=== PATIENT | female | born 1965 | race Hispanic/Latino ===

== ENCOUNTER 2017-03-31 11:14 | Emergency (ER) | payer MEDICARE, MEDICAID ==
[2017-03-31 11:47] VITALS: BP 113/83
[2017-03-31 11:49] LABS: Urine Drugs of Abuse Note Disclamer
[2017-03-31 12:04] LABS: Bilirubin,Urine Negative (Negative); Blood,Urine Small (Negative); Ketones,Urine Negative (Negative); Leukocyte Esterase,Urine Small (Negative); Nitrite,Urine Negative (Negative); Protein,Urine <15 mg/dL mg/dL (Negative); Urobilinogen,Urine < 2.0 mg/dL (<2.0)
[2017-03-31 12:24] LABS: Hematocrit 38.3 % (30.3-42.9); Hemoglobin 12.3 gm/dl (10.1-14.3); Mean Corpuscular HGB Conc 32 % (30-34); Mean Corpuscular Hemoglobin 29 pg (28-32); Mean Corpuscular Volume 89 fl (79-97); Platelet Count 376 K/mm3 (140-440); Red Cell Distribution Width 13.9 % (13.2-15.2); White Blood Count 10.4 K/mm3 (4.5-11.0)
[2017-03-31 12:40] LABS: Calcium 8.8 mg/dL (8.4-10.2); Chloride 104.5 mmol/L (98-107); Potassium 3.7 mmol/L (3.6-5.0)
--- NOTE | 2017-03-31 15:09 | Cat Scan Report ---
CT HEAD WITHOUT CONTRAST: HISTORY: Headache, altered mental status. TECHNIQUE: Sequential 2.5mm CT images. COMPARISON: none. FINDINGS: Cerebral Parenchyma: Within normal limits. Cerebellum: Within normal limits. Brainstem: Within normal limits. Ventricles: Normal. Sella: Normal. Extra-axial spaces: Normal. Basal Cisterns: Normal. Intracranial Hemorrhage: None. Midline Shift: None. Calvarium: Normal. Sinuses: Normal. Mastoid Air Cells: Normal. Visualized Orbits: Normal. IMPRESSION: Cranial CT scan within normal limits.
--- NOTE | 2017-03-31 16:00 | Emergency Department Report ---
ED General Adult HPI - General Chief complaint: Weakness Stated complaint: NECK PAIN Time Seen by Provider: 03/31/17 12:54 Source: patient, EMS Mode of arrival: Ambulatory Limitations: No Limitations - History of Present Illness Initial comments: Patient apparently is a resident of [facility] for out patient treatment. They have sent her here for "medical clearance". The patient is schizophrenic and bipolar. She has no specific complaint. [facility] has not referred her for any specific evaluation. She received an laboratory data which indicated that she had mild lithium toxicity. She was also found to be a bit confused. Therefore she had a CT of her head which was normal. On speaking to the patient she is a bit confused about her whereabouts. She thinks she is at a psychiatric hospital. I wouldn't be surprised if this is her baseline. She does not complain of pain. She does not complain of anything at all. -: unknown Severity scale (0 -10): 0 Associated Symptoms: denies other symptoms, confusion (found to be a bit confused but does not complain of anything) - Related Data Previous Rx's Medication Instructions Recorded Last Taken Type [place] Carbonate [Eskalith] 150 mg PO BID #60 capsule 03/31/17 Unknown Rx Allergies Allergy/AdvReac Type Severity Reaction Status Date / Time Penicillins Allergy Unknown Verified 03/31/17 11:42 ED Review of Systems ROS: Stated complaint: NECK PAIN Other details as noted in HPI Comment: All other systems reviewed and negative ED Past Medical Hx - Past Medical History Additional medical history: Schizophrenia and bipolar disorder - Social History Substance Use Type: None - Medications Home Medications: Home Medications Medication Instructions Recorded Confirmed Last Taken Type [place] Carbonate [Eskalith] 150 mg PO BID #60 capsule 03/31/17 Unknown Rx ED Physical Exam - General Limitations: No Limitations General appearance: alert, in no apparent distress - Head Head exam: Present: atraumatic, normocephalic - Eye Eye exam: Present: normal appearance. Absent: scleral icterus - ENT ENT exam: Present: mucous membranes moist - Neck Neck exam: Present: normal inspection. Absent: tenderness, meningismus - Respiratory Respiratory exam: Present: normal lung sounds bilaterally. Absent: respiratory distress - Cardiovascular Cardiovascular Exam: Present: regular rate, normal rhythm. Absent: systolic murmur, diastolic murmur, rubs, gallop - GI/Abdominal GI/Abdominal exam: Present: soft, normal bowel sounds. Absent: distended, tenderness, guarding, rebound, rigid - Extremities Exam Extremities exam: Present: normal inspection - Back Exam Back exam: Present: normal inspection - Neurological Exam Neurological exam: Present: alert, altered (a bit confused with poor orientation to place), CN II-XII intact, other. Absent: motor sensory deficit - Psychiatric Psychiatric exam: Present: normal mood, flat affect - Skin Skin exam: Present: warm, dry, intact, normal color. Absent: rash ED Course Vital Signs 03/31/17 03/31/17 03/31/17 11:16 11:46 11:47 Temperature 97.9 F Pulse Rate 76 74 Respiratory 16 15 15 Rate Blood Pressure 101/82 Blood Pressure 113/83 [Left] O2 Sat by Pulse 98 99 99 Oximetry - Reevaluation(s) Reevaluation #1: I spoke to the [place] [facility]. They confirm that the patient should just stop her lithium for 2 days and then restart on a lower dose. There was no indications for hospitalization. We reviewed her EKG vital signs and the balance of her laboratory testing. She will be returned to [facility] with this recommendation. 03/31/17 16:16 ED Medical Decision Making - Lab Data Result diagrams: 03/31/17 11:59 03/31/17 11:59 Laboratory Results - last 24 hr 03/31/17 03/31/17 03/31/17 11:39 11:39 11:59 WBC 10.4 RBC 4.30 Hgb 12.3 Hct 38.3 MCV 89 MCH 29 MCHC 32 RDW 13.9 Plt Count 376 Sodium Potassium Chloride Carbon Dioxide Anion Gap BUN Creatinine Estimated GFR BUN/Creatinine Ratio Glucose Calcium TSH Free T4 Urine Color Yellow Urine Turbidity Clear Urine pH 7.0 Ur Specific [place] 1.005 Urine Protein <15 mg/dl Urine Glucose (UA) Negative Urine Ketones Negative Urine Blood Small A Urine Nitrite Negative Urine Bilirubin Negative Urine Urobilinogen < 2.0 Ur Leukocyte Esterase Small Urine WBC (Auto) 3.0 Urine RBC (Auto) 0.0 U Epithel Cells (Auto) 10.0 Urine Opiates Screen Presumptive negative Urine Methadone Screen Presumptive negative Ur Barbiturates Screen Presumptive negative Ur Phencyclidine Scrn Presumptive negative Ur Amphetamines Screen Presumptive negative U Benzodiazepines Scrn Presumptive negative [place] Urine Cocaine Screen Presumptive negative U Marijuana (THC) Screen Presumptive negative Drugs of Abuse Note Disclamer 03/31/17 03/31/17 03/31/17 11:59 11:59 11:59 WBC RBC Hgb Hct MCV MCH MCHC RDW Plt Count Sodium 142 Potassium 3.7 Chloride 104.5 Carbon Dioxide 22 Anion Gap 19 BUN 10 Creatinine 1.0 Estimated GFR 58 BUN/Creatinine Ratio 10 Glucose 86 Calcium 8.8 TSH 1.300 Free T4 1.69 H Urine Color Urine Turbidity Urine pH Ur Specific [place] Urine Protein Urine Glucose (UA) Urine Ketones Urine Blood Urine Nitrite Urine Bilirubin Urine Urobilinogen Ur Leukocyte Esterase Urine WBC (Auto) Urine RBC (Auto) U Epithel Cells (Auto) Urine Opiates Screen Urine Methadone Screen Ur Barbiturates Screen Ur Phencyclidine Scrn Ur Amphetamines Screen U Benzodiazepines Scrn [place] 1.4 H Urine Cocaine Screen U Marijuana (THC) Screen Drugs of Abuse Note Critical care attestation.: If time is entered above; I have spent that time in minutes in the direct care of this critically ill patient, excluding procedure time. ED Disposition Clinical Impression: [place] toxicity Qualifiers: Encounter type: initial encounter Injury intent: accidental or unintentional Qualified Code(s): T56.891A - Toxic effect of other metals, accidental ( unintentional), initial encounter Bipolar disorder Qualifiers: Active/Remission status: remission status unspecified Qualified Code(s): F31.9 - Bipolar disorder, unspecified Schizophrenia Qualifiers: Schizophrenia type: unspecified Qualified Code(s): F20.9 - Schizophrenia, unspecified Disposition: DC-01 TO HOME OR SELFCARE Is pt being admited?: No Does the pt Need Aspirin: No Condition: Stable Instructions: [place] (By mouth) Additional Instructions: The patient should stop her lithium for the next 2 days. After that, restart lithium at 200 mg twice a day. A repeat lithium level should be obtained next week. Prescriptions: [place] Carbonate [Eskalith] 150 mg PO BID #60 capsule Referrals: PRIMARY CARE, [Primary Care Provider] - 3-5 Days Time of Disposition: 16:19
== END 2017-04-01 01:37 | disposition home or self-care (01) ==
LOC: ED 11:14
DX: M54.2 Cervicalgia (principal); T56.891A Toxic effect of other metals, accidental (unintentional), initial encounter; F31.9 Bipolar disorder, unspecified; F20.9 Schizophrenia, unspecified; Z88.0 Allergy status to penicillin; Y92.89 Other specified places as the place of occurrence of the external cause
CPT/HCPCS: 36415; 70450; 80048; 80178; 80307; 81001; 84439; 84443; 85027; 93005; 93010; 99284

== ENCOUNTER 2017-04-02 13:08 | Emergency (ER) | payer MEDICARE, MEDICAID ==
--- NOTE | 2017-04-02 14:08 | Emergency Department Report ---
ED General Adult HPI - General Chief complaint: Weakness Stated complaint: GENERAL WEAKNESS Time Seen by Provider: 04/02/17 13:57 Source: patient, EMS (ems notes not available at time of chart dictation), RN notes reviewed, old records reviewed Mode of arrival: Stretcher Limitations: No Limitations - History of Present Illness Initial comments: This is a 51-year-old female who is previously unknown to this provider. Patient has a past medical history of schizophrenia, bipolar. Presents to the ER with complaint of weakness and dizziness. Her symptoms have been present for 1 month. They are intermittent. It worsened when she walks and decreased with rest. Patient describes her dizziness as a sensation of room spinning. There is no tinnitus there is no change in auditory acuity, there is no extremity weakness focally or numbness focally. No facial droop. Patient to me reports falling around month ago, complaining of occipital head pain and neck pain. Patient denies bladder or bowel retention or incontinence and saddle anesthesia. -: Gradual, week(s) Location: head, neck Severity scale (0 -10): 0 Quality: aching Consistency: intermittent Improves with: rest Worsens with: movement Associated Symptoms: malaise, weakness. denies: confusion, chest pain, cough, fever/chills - Related Data Previous Rx's Medication Instructions Recorded Last Taken Type [place] Carbonate [Eskalith] 150 mg PO BID #60 capsule 03/31/17 Unknown Rx Meclizine [Antivert] 25 mg PO TID PRN #15 tablet 04/02/17 Unknown Rx Allergies Allergy/AdvReac Type Severity Reaction Status Date / Time Penicillins Allergy Unknown Verified 03/31/17 11:42 ED Review of Systems ROS: Stated complaint: GENERAL WEAKNESS Other details as noted in HPI ED Past Medical Hx - Past Medical History Previous Medical History?: Yes Hx Asthma: Yes Additional medical history: Schizophrenia and bipolar disorder - Surgical History Past Surgical History?: No - Social History Substance Use Type: None - Medications Home Medications: Home Medications Medication Instructions Recorded Confirmed Last Taken Type [place] Carbonate [Eskalith] 150 mg PO BID #60 capsule 03/31/17 Unknown Rx Meclizine [Antivert] 25 mg PO TID PRN #15 tablet 04/02/17 Unknown Rx ED Physical Exam - General Limitations: No Limitations General appearance: alert, in no apparent distress - Head Head exam: Present: atraumatic, normocephalic - Eye Eye exam: Present: normal appearance, PERRL, EOMI, other (visual acuity intact to finger counting, color perception, reading at a close distance). Absent: nystagmus - ENT ENT exam: Present: normal exam, normal orophraynx, mucous membranes moist, TM's normal bilaterally, normal external ear exam - Neck Neck exam: Present: normal inspection, full ROM. Absent: tenderness, meningismus - Respiratory Respiratory exam: Present: normal lung sounds bilaterally. Absent: respiratory distress - Cardiovascular Cardiovascular Exam: Present: regular rate, normal rhythm, normal heart sounds. Absent: systolic murmur, diastolic murmur, rubs, gallop - GI/Abdominal GI/Abdominal exam: Present: soft, normal bowel sounds. Absent: distended, tenderness, guarding, rebound, rigid, pulsatile mass - Extremities Exam Extremities exam: Present: normal inspection, full ROM, normal capillary refill , other (compartments are soft, 2+ pulses noted in the bilateral upper and lower extremities). Absent: pedal edema, joint swelling, calf tenderness - Back Exam Back exam: Present: normal inspection, full ROM. Absent: tenderness, CVA tenderness (R), paraspinal tenderness, vertebral tenderness - Neurological Exam Neurological exam: Present: alert, oriented X3, CN II-XII intact, normal gait ( patient walks with a broad-based gait, but she walks with a steady gait. Patient has sandals on, and is unable to tolerate Romberg exam, or tendon gait) , other (Extraocular movements intact. Tongue midline. No facial droop. Facial sensation intact to light touch in the V1, V2, V3 distribution bilaterally. 5 and 5 strength in 4 extremities.. Sensation is intact to light touch in 4 extremities.). Absent: motor sensory deficit - Psychiatric Psychiatric exam: Present: anxious, flat affect. Absent: homicidal ideation, suicidal ideation - Skin Skin exam: Present: warm, dry, intact, normal color. Absent: rash ED Course Vital Signs 04/02/17 04/02/17 13:26 14:10 Temperature 98.5 F Pulse Rate 84 79 Respiratory 18 14 Rate Blood Pressure 110/72 Blood Pressure 101/67 [Left] Blood Pressure 110/72 [Right] O2 Sat by Pulse 98 Oximetry - Reevaluation(s) Reevaluation #1: 04/02/17 14:18 Differential diagnosis, including when not limited to: Peripheral vestibulopathy , stroke, demyelinating disease, vitamin B12 deficiency, folate deficiency, electrolyte derangement, peripheral neuropathy 04/02/17 14:Assessment and plan: 51-year-old female with complaint of headache, neck pain, mechanical fall 1 month ago, also with a complaint of dizziness. Patient is alert to name, location, year. She walks with a steady gait although it is broad-based. She is not homicidal or suicidal. She was seen a few days ago for nonspecific evaluation, at that point in time it was documented that the patient had no symptoms or complaints, was found to have a slightly supratherapeutic lithium level, and was discharged with instructions to follow-up for this. Given the patient's symptoms have been going on for 1 month, and given that she walks with a steady gait, given that her neurologic examination is nonfocal, demented that there is no nystagmus, I think it is very likely that the patient is at risk for cerebrovascular accident. I also find that the patient had a cerebrovascular accident. Had a negative noncontrast CT scan of the brain a few days ago, and essentially normal laboratory studies with the exception of TSH and free T4. We will repeat laboratory studies, EKGs obtained, patient will be given meclizine. She will need to follow up with outpatient neurology. 20 Reevaluation #2: 04/02/17 16:[address] scan of the brain and cervical spine is negative. Urinalysis was done a few days ago and was negative. Syphilis screen is not back yet, but this can be followed up as an outpatient. Patient resting comfortably with no hemodynamic abnormalities, given that her symptoms have been present for 1 month , I think it is very unlikely that there is any emergent condition requiring hospitalization at this time. Troponin is negative, I find the patient to be low risk by TORRIE, low risk by well's, low risk by heart score Patient should follow up with outpatient neurology. ED Medical Decision Making - Lab Data Result diagrams: 04/02/17 14:23 04/02/17 14:23 Vital Signs 04/02/17 13:26 Pulse Rate 84 Respiratory 18 Rate Blood Pressure 110/72 Blood Pressure 110/72 [Right] O2 Sat by Pulse 98 Oximetry Vital Signs 04/02/17 13:26 Pulse Rate 84 Respiratory 18 Rate Blood Pressure 110/72 Blood Pressure 110/72 [Right] O2 Sat by Pulse 98 Oximetry - EKG Data 04/02/17 14:21 Normal sinus, 76 bpm, left axis deviation, low voltage, motion artifact, abnormal EKG, not morphologically consistent with ST elevation myocardial infarction - Radiology Data Radiology results: pending, report reviewed, image reviewed Noncontrast CT scan of the brain and cervical spine, interpreted by radiology: Negative for acute disease Critical care attestation.: If time is entered above; I have spent that time in minutes in the direct care of this critically ill patient, excluding procedure time. ED Disposition Clinical Impression: Dizziness Disposition: DC-01 TO HOME OR SELFCARE Is pt being admited?: No Does the pt Need Aspirin: No Condition: Good Additional Instructions: Continue current outpatient medications. Syphilis screen was sent today, results will be available in the next 3-5 days, please have a primary care doctor contact the medical records department to obtain these results. Follow up with an outpatient neurologist within the next 7-10 days. For the patient's convenience, numerous local neurology specialists have been listed. Return to the ER right alert fevers, chills, lethargy, irritability, projectile vomiting, change in mental status, confusion, inability to tolerate liquid feeds. Referrals: NIKKO BARONE MD [Primary Care Provider] - 3-5 Days SIOMARA JUÁREZ MD [Referring] - 3-5 Days STIVEN GLEASON MD [Staff Physician] - 3-5 Days PHOEBE CORTEZ MD [Staff Physician] - 3-5 Days
[2017-04-02] MEDS ORDERED: ANTIVERT PO ONE (14:19)
[2017-04-02 14:56] LABS: Basophils % (Auto) 0.9 % (0.0-1.8); Hematocrit 35.9 % (30.3-42.9); Hemoglobin 11.8 gm/dl (10.1-14.3); Mean Corpuscular HGB Conc 33 % (30-34); Mean Corpuscular Hemoglobin 30 pg (28-32); Mean Corpuscular Volume 90 fl (79-97); Platelet Count 377 K/mm3 (140-440); Red Blood Count 3.99 M/mm3 (3.65-5.03); White Blood Count 8.2 K/mm3 (4.5-11.0)
[2017-04-02 15:10] LABS: INR 1.03 (0.87-1.13)
[2017-04-02 15:11] LABS: Partial Thromboplastin Time 34.9 Sec. (24.2-36.6)
[2017-04-02 15:17] LABS: Lithium 0.9 mmol/L (0.0-1.2)
[2017-04-02 15:18] LABS: Alanine Aminotransferase 13 units/L (7-56); Albumin/Globulin Ratio 1.3 %; Alkaline Phosphatase 91 units/L (35-129); Anion Gap 23 mmol/L; BUN/Creatinine Ratio 15; Blood Urea Nitrogen 15 mg/dL (7-17); Calcium 8.6 mg/dL (8.4-10.2); Carbon Dioxide 18 mmol/L (22-30); Chloride 103.8 mmol/L (98-107); Creatine Kinase 585 units/L (30-135); Glucose 87 mg/dL (65-100); Potassium 3.8 mmol/L (3.6-5.0); Sodium 141 mmol/L (137-145); Total Protein 7.1 g/dL (6.3-8.2)
[2017-04-02 15:21] LABS: Salicylate < 0.3 mg/dL (2.8-20.0)
--- NOTE | 2017-04-02 15:26 | Cat Scan Report ---
FINAL REPORT PROCEDURE: CT CERVICAL SPINE WO CON TECHNIQUE: Computerized tomography of the cervical spine was performed without contrast material. HISTORY: neck pain fall COMPARISON: None FINDINGS: There is no evident vertebral body or posterior element fracture. There is no subluxation. Mildly bulging annuli are present at C2/C3 through C5/C6 levels. There is no CT evident disc herniation, central canal or foraminal stenosis at any level. Mild facet DJD is seen. Thyroidectomy is incidentally noted. Mild pulmonary emphysema is seen. IMPRESSION: Mild degenerative changes without evident fracture. Incidentally seen thyroidectomy and pulmonary emphysema.
--- NOTE | 2017-04-02 15:34 | Cat Scan Report ---
FINAL REPORT PROCEDURE: CT HEAD/BRAIN WO CON TECHNIQUE: Computerized tomography of the head was performed without contrast material. HISTORY: headache COMPARISON: Noncontrast head CT 03/31/2017 FINDINGS: Brain volume is age appropriate. There is no CT evident acute infarction. There is no remote infarct, intra or extra-axial hemorrhage. There is no mass effect or shift of midline structures. The skull base and calvarium are intact. The partially visualized paranasal sinuses, mastoid air cells and middle ears are clear. IMPRESSION: No CT evident intracranial abnormality
[2017-04-03 01:54] VITALS: BP 116/60
== END 2017-04-02 23:30 | disposition home or self-care (01) ==
LOC: ED 13:08
DX: R42 Dizziness and giddiness (principal); J45.909 Unspecified asthma, uncomplicated
CPT/HCPCS: 36415; 70450; 72125; 80053; 80178; 82550; 82607; 83735; 84484; 85025; 85610; 85670; 85730; 86592; 93005; 93010; 99285; G0480; 80320

== ENCOUNTER 2017-04-06 08:26 | Inpatient (IN) | payer MEDICARE ==
[2017-04-06 09:24] LABS: Basophils # (Auto) 0.1 K/mm3 (0.0-0.1); Basophils % (Auto) 0.7 % (0.0-1.8); Eosinophils # (Auto) 0.2 K/mm3 (0.0-0.4); Eosinophils % (Auto) 2.9 % (0.0-4.3); Hematocrit 38.3 % (30.3-42.9); Hemoglobin 12.4 gm/dl (10.1-14.3); Lymphocytes # (Auto) 2.3 K/mm3 (1.2-5.4); Lymphocytes % (Auto) 28.1 % (13.4-35.0); Mean Corpuscular HGB Conc 33 % (30-34); Mean Corpuscular Hemoglobin 29 pg (28-32); Mean Corpuscular Volume 90 fl (79-97); Monocytes # (Auto) 0.9 K/mm3 (0.0-0.8); Monocytes % (Auto) 10.5 % (0.0-7.3); Platelet Count 365 K/mm3 (140-440); Red Blood Count 4.27 M/mm3 (3.65-5.03); Red Cell Distribution Width 13.9 % (13.2-15.2)
[2017-04-06 09:41] LABS: BUN/Creatinine Ratio 9; Blood Urea Nitrogen 9 mg/dL (7-17); Calcium 8.2 mg/dL (8.4-10.2); Hemolysis Index 16
[2017-04-06 09:48] LABS: INR 1.03 (0.87-1.13)
[2017-04-06] MEDS ORDERED: NACL 0.9% 1000 ML 1,000 ML IV ONE ×2 (10:31→12:53)
[2017-04-06 13:20] LABS: Bacteria,Urine 4+ /HPF (Negative); Bilirubin,Urine NEG (Negative); Blood,Urine SM (Negative); Color,Urine Yellow (Yellow); Mucus,Urine FEW /HPF; Nitrite,Urine POS (Negative); Protein,Urine <15 mg/dL mg/dL (Negative); Urobilinogen,Urine < 2.0 mg/dL (<2.0)
[2017-04-06 13:41] LABS: Amphetamine Screen,Urine PRESUMPTIVE NEGATIVE; Benzodiazepines Screen,Urine PRESUMPTIVE NEGATIVE; Cannabinoid Screen,Urine PRESUMPTIVE NEGATIVE; Cocaine Screen,Urine PRESUMPTIVE NEGATIVE; Methadone Screen,Urine PRESUMPTIVE NEGATIVE; Opiate Screen,Urine PRESUMPTIVE NEGATIVE
[2017-04-06] MEDS ORDERED: MACROBID PO ONE (14:04)
[2017-04-06] MEDS ORDERED: K-DUR PO ONE (14:25)
--- NOTE | 2017-04-06 14:26 | Cat Scan Report ---
FINAL REPORT PROCEDURE: CT CERVICAL SPINE WO CON TECHNIQUE: Computerized tomography of the cervical spine was performed from the skull base to T1 without contrast material. HISTORY: fall, ? LOC, neck pain COMPARISON: Prior CT scan the 04/02/2017 FINDINGS: No fracture or subluxation is visualized. Mild facet arthritis visualized in the upper cervical spine. Posterior elements are intact. Prevertebral soft tissues appear normal. Small anterior osteophytic spurs are present at C4-5, C5-6, C6-7 and T1-T2 disc spaces. There are mild disc bulges present at the C2-C3, C3-C4, C4-C5 disc spaces. No focal disc herniations or spinal stenosis are identified. Calcifications are visualized in the carotid arteries bilaterally indicating atherosclerotic disease. There is been previous thyroidectomy. Images through the upper lung ruiz show evidence of emphysematous change. IMPRESSION: Mild degenerative disc disease and facet arthritis is present. No fracture or subluxation is seen. Prior thyroidectomy. Of emphysematous changes incidentally noted in the upper thorax..
--- NOTE | 2017-04-06 14:31 | Emergency Department Report ---
ED Headache HPI - General Chief Complaint: Headache Stated Complaint: NECK PAIN/HEADACHE Time Seen by Provider: 04/06/17 09:04 Source: patient Exam Limitations: other - History of Present Illness Initial Comments: 51 year old female with a past medical history of schizophrenia, fibromyalgia, bipolar disorder, PTSD, asthma, and hypertension who currently resides at an outpatient psychiatric facility presents to the hospital again for headache, neck pain, and fall with LOC. Patient is very drowsy during examination but arousable to voice. Patient states she is tired and denies any overdose on medication. She takes lithium, Lyrica for fibromyalgia, and hydrocodone for pain. She denies alcohol or substance abuse. Patient states she tripped and fell and then was found down after several hours and sent to the ER. Patient's stories are inconsistent. She presents with dry blood to her right side of her face but states she does not know how it got there but states she might have had a nosebleed. Patient states she might have also had a pseudoseizure. Patient was here on the in the and had a CT head [address] cervical spine 1 that were unremarkable for acute findings. At 3:35 PM patient is finally able to explain her symptoms. She states the past month she states when she ambulates she feels unsteady and then falls. She has not been admitted for workup for this problem however, has presented to the ER several times. Allergies/Adverse Reactions: Allergies Penicillins Allergy (Verified 03/31/17 11:42) Unknown Home Medications: Ambulatory Orders [place] Carbonate [Eskalith] 150 mg PO BID #60 capsule 03/31/17 Meclizine [Antivert] 25 mg PO TID PRN #15 tablet 04/02/17 Nitrofurantoin Monohyd/M-Cryst [Macrobid 100 mg Capsule] 100 mg PO BID #14 capsule 04/06/17 ED Review of Systems ROS: Stated complaint: NECK PAIN/HEADACHE Other details as noted in HPI Comment: All other systems reviewed and negative Other: Constitutional: No fevers chills Eyes: No eye pain visual changes ENT: No ear pain or throat pain Neck: on going neck pain Respiratory: Denies cough wheezing shortness of breath Cardiovascular: Denies chest pain, palpitations, syncope GI: Denies abdominal pain, nausea, vomiting, diarrhea : Denies dysuria Musculoskeletal: Denies back pain, joint swelling Skin: Denies rash, lesions, erythema Neurologic: Denies numbness, weakness Psychiatric: Denies suicidal ideation, hallucinations ED Past Medical Hx - Past Medical History Previous Medical History?: Yes Hx Hypertension: Yes Hx Asthma: Yes Additional medical history: Schizophrenia and bipolar disorder. PTSD - Surgical History Past Surgical History?: Yes Additional Surgical History: hysterectomy. x2 - Social History Smoking Status: Current Every Day Smoker Substance Use Type: None - Medications Home Medications: Home Medications Medication Instructions Recorded Confirmed Last Taken Type [place] Carbonate [Eskalith] 150 mg PO BID #60 capsule 03/31/17 Unknown Rx Meclizine [Antivert] 25 mg PO TID PRN #15 tablet 04/02/17 Unknown Rx Nitrofurantoin Monohyd/M-Cryst 100 mg PO BID #14 capsule 04/06/17 Unknown Rx [Macrobid 100 mg Capsule] ED Physical Exam - General Limitations: No Limitations - Other Other exam information: General: Patient extremely drowsy but arousable Head exam: Atraumatic, normocephalic Eyes exam: Normal appearance, pupils equal and reactive to light ENT: Moist mucous membrane, normal oropharynx Neck exam: Normal inspection, full range of motion, no meningismus, generalized midline cervical tenderness Respiratory exam: Clear to auscultation bilateral, no wheezes, rales, crackles Cardiovascular: Normal rate and rhythm, normal heart sounds Abdomen: Soft, nondistended, and nontender, with normal bowel sounds, no rebound, or guarding Extremity: Full range of motion normal inspection no deformity Back: Normal Inspection, full range of motion, no tenderness Neurologic: Drowsy but arousable, oriented 3, cranial nerves intact, equal hand subway guard and foot dorsiflexion, sensation intact Psychiatric: normal affect, normal mood Skin: Warm, dry, intact ED Course Vital Signs 04/06/17 04/06/17 04/06/17 08:46 08:58 08:59 Temperature 98.7 F Pulse Rate 71 Respiratory 16 18 Rate Blood Pressure Blood Pressure 125/84 [Left] O2 Sat by Pulse 98 98 98 Oximetry 04/06/17 04/06/17 04/06/17 09:00 09:16 09:30 Temperature Pulse Rate 72 70 72 Respiratory 13 14 15 Rate Blood Pressure 125/84 100/74 100/74 Blood Pressure [Left] O2 Sat by Pulse 97 100 99 Oximetry 04/06/17 04/06/17 04/06/17 09:46 10:00 10:16 Temperature Pulse Rate 61 64 64 Respiratory 12 11 L 12 Rate Blood Pressure 100/74 101/69 101/69 Blood Pressure [Left] O2 Sat by Pulse 99 98 99 Oximetry 04/06/17 04/06/17 04/06/17 10:30 10:46 11:00 Temperature Pulse Rate 60 58 L 60 Respiratory 12 10 L 11 L Rate Blood Pressure 101/69 101/69 118/98 Blood Pressure [Left] O2 Sat by Pulse 99 99 99 Oximetry 04/06/17 04/06/17 04/06/17 11:16 11:30 11:46 Temperature Pulse Rate 69 86 67 Respiratory 11 L 12 11 L Rate Blood Pressure 118/98 118/98 118/98 Blood Pressure [Left] O2 Sat by Pulse 98 100 100 Oximetry 04/06/17 04/06/17 04/06/17 12:00 12:16 12:30 Temperature Pulse Rate 64 67 64 Respiratory 14 10 L 11 L Rate Blood Pressure 118/98 107/89 107/89 Blood Pressure [Left] O2 Sat by Pulse 98 98 98 Oximetry 04/06/17 04/06/17 04/06/17 12:46 13:00 13:16 Temperature Pulse Rate 68 75 80 Respiratory 12 16 13 Rate Blood Pressure 107/89 122/93 122/93 Blood Pressure [Left] O2 Sat by Pulse 98 100 97 Oximetry 04/06/17 04/06/17 04/06/17 13:54 14:00 14:16 Temperature Pulse Rate 75 81 90 Respiratory 13 12 21 Rate Blood Pressure 122/93 132/93 128/85 Blood Pressure [Left] O2 Sat by Pulse 100 100 93 Oximetry 04/06/17 04/06/17 04/06/17 14:30 14:46 15:00 Temperature Pulse Rate 78 82 74 Respiratory 12 11 L 12 Rate Blood Pressure 131/95 145/97 140/99 Blood Pressure [Left] O2 Sat by Pulse 100 98 98 Oximetry 04/06/17 15:15 Temperature Pulse Rate 86 Respiratory 13 Rate Blood Pressure 140/99 Blood Pressure [Left] O2 Sat by Pulse 100 Oximetry - Reevaluation(s) Reevaluation #1: 04/06/17 14:33 Patient more alert at this time and states she she is sleepy and continues to deny overdose. I hesitate to rescan patient however, she is not a great historian, her story changes multiple times, she presents with dry blood to her right naris with reported fall and extended period of possible LOC. Therefore, CT head and cervical spine were repeated. UA positive for UTI and Macrobid initiated. ED Medical Decision Making - Lab Data Result diagrams: 04/06/17 09:12 04/06/17 09:12 Lab Results 04/06/17 04/06/17 04/06/17 Range/Units 09:12 09:12 09:12 WBC 8.1 (4.5-11.0) K/mm3 RBC 4.27 (3.65-5.03) M/mm3 Hgb 12.4 (10.1-14.3) gm/dl Hct 38.3 (30.3-42.9) % MCV 90 (79-97) fl MCH 29 (28-32) pg MCHC 33 (30-34) % RDW 13.9 (13.2-15.2) % Plt Count 365 (140-440) K/mm3 Lymph % (Auto) 28.1 (13.4-35.0) % [place] % (Auto) 10.5 H (0.0-7.3) % Eos % (Auto) 2.9 (0.0-4.3) % Baso % (Auto) 0.7 (0.0-1.8) % Lymph # 2.3 (1.2-5.4) K/mm3 [place] # 0.9 H (0.0-0.8) K/mm3 Eos # 0.2 (0.0-0.4) K/mm3 Baso # 0.1 (0.0-0.1) K/mm3 Seg Neutrophils % 57.8 (40.0-70.0) % Seg Neutrophils # 4.7 (1.8-7.7) K/mm3 PT (12.2-14.9) Sec. INR (0.87-1.13) Sodium 143 (137-145) mmol/L Potassium 3.5 L (3.6-5.0) mmol/L Chloride 105.8 (98-107) mmol/L Carbon Dioxide 23 (22-30) mmol/L Anion Gap 18 mmol/L BUN 9 (7-17) mg/dL Creatinine 1.0 (0.7-1.2) mg/dL Estimated GFR 58 ml/min BUN/Creatinine Ratio 9 % Glucose 103 H (65-100) mg/dL Calcium 8.2 L (8.4-10.2) mg/dL Total Creatine Kinase (30-135) units/L Troponin T < 0.010 (0.00-0.029) ng/mL Urine Color (Yellow) Urine Turbidity (Clear) Urine pH (5.0-7.0) Ur Specific [place] (1.003-1.030) Urine Protein (Negative) mg/dL Urine Glucose (UA) (Negative) mg/dL Urine Ketones (Negative) mg/dL Urine Blood (Negative) Urine Nitrite (Negative) Urine Bilirubin (Negative) Urine Urobilinogen (<2.0) mg/dL Ur Leukocyte Esterase (Negative) Urine WBC (Auto) (0.0-6.0) /HPF Urine RBC (Auto) (0.0-6.0) /HPF U Epithel Cells (Auto) (0-13.0) /HPF Urine Bacteria (Auto) (Negative) /HPF Urine Mucus /HPF Urine Opiates Screen Urine Methadone Screen Ur Barbiturates Screen Ur Phencyclidine Scrn Ur Amphetamines Screen U Benzodiazepines Scrn [place] 0.4 (0.0-1.2) mmol/L Urine Cocaine Screen U Marijuana (THC) Screen Drugs of Abuse Note Plasma/Serum Alcohol (0-0.07) gm% 04/06/17 04/06/17 04/06/17 Range/Units 09:12 09:21 11:48 WBC (4.5-11.0) K/mm3 RBC (3.65-5.03) M/mm3 Hgb (10.1-14.3) gm/dl Hct (30.3-42.9) % MCV (79-97) fl MCH (28-32) pg MCHC (30-34) % RDW (13.2-15.2) % Plt Count (140-440) K/mm3 Lymph % (Auto) (13.4-35.0) % [place] % (Auto) (0.0-7.3) % Eos % (Auto) (0.0-4.3) % Baso % (Auto) (0.0-1.8) % Lymph # (1.2-5.4) K/mm3 [place] # (0.0-0.8) K/mm3 Eos # (0.0-0.4) K/mm3 Baso # (0.0-0.1) K/mm3 Seg Neutrophils % (40.0-70.0) % Seg Neutrophils # (1.8-7.7) K/mm3 PT 14.0 (12.2-14.9) Sec. INR 1.03 (0.87-1.13) Sodium (137-145) mmol/L Potassium (3.6-5.0) mmol/L Chloride (98-107) mmol/L Carbon Dioxide (22-30) mmol/L Anion Gap mmol/L BUN (7-17) mg/dL Creatinine (0.7-1.2) mg/dL Estimated GFR ml/min BUN/Creatinine Ratio % Glucose (65-100) mg/dL Calcium (8.4-10.2) mg/dL Total Creatine Kinase (30-135) units/L Troponin T < 0.010 (0.00-0.029) ng/mL Urine Color (Yellow) Urine Turbidity (Clear) Urine pH (5.0-7.0) Ur Specific [place] (1.003-1.030) Urine Protein (Negative) mg/dL Urine Glucose (UA) (Negative) mg/dL Urine Ketones (Negative) mg/dL Urine Blood (Negative) Urine Nitrite (Negative) Urine Bilirubin (Negative) Urine Urobilinogen (<2.0) mg/dL Ur Leukocyte Esterase (Negative) Urine WBC (Auto) (0.0-6.0) /HPF Urine RBC (Auto) (0.0-6.0) /HPF U Epithel Cells (Auto) (0-13.0) /HPF Urine Bacteria (Auto) (Negative) /HPF Urine Mucus /HPF Urine Opiates Screen Urine Methadone Screen Ur Barbiturates Screen Ur Phencyclidine Scrn Ur Amphetamines Screen U Benzodiazepines Scrn [place] (0.0-1.2) mmol/L Urine Cocaine Screen U Marijuana (THC) Screen Drugs of Abuse Note Plasma/Serum Alcohol < 0.01 (0-0.07) gm% 04/06/17 04/06/17 04/06/17 Range/Units 13:06 13:06 Unknown WBC (4.5-11.0) K/mm3 RBC (3.65-5.03) M/mm3 Hgb (10.1-14.3) gm/dl Hct (30.3-42.9) % MCV (79-97) fl MCH (28-32) pg MCHC (30-34) % RDW (13.2-15.2) % Plt Count (140-440) K/mm3 Lymph % (Auto) (13.4-35.0) % [place] % (Auto) (0.0-7.3) % Eos % (Auto) (0.0-4.3) % Baso % (Auto) (0.0-1.8) % Lymph # (1.2-5.4) K/mm3 [place] # (0.0-0.8) K/mm3 Eos # (0.0-0.4) K/mm3 Baso # (0.0-0.1) K/mm3 Seg Neutrophils % (40.0-70.0) % Seg Neutrophils # (1.8-7.7) K/mm3 PT (12.2-14.9) Sec. INR (0.87-1.13) Sodium (137-145) mmol/L Potassium (3.6-5.0) mmol/L Chloride (98-107) mmol/L Carbon Dioxide (22-30) mmol/L Anion Gap mmol/L BUN (7-17) mg/dL Creatinine (0.7-1.2) mg/dL Estimated GFR ml/min BUN/Creatinine Ratio % Glucose (65-100) mg/dL Calcium (8.4-10.2) mg/dL Total Creatine Kinase 135 (30-135) units/L Troponin T (0.00-0.029) ng/mL Urine Color Yellow (Yellow) Urine Turbidity Slightly-cloudy (Clear) Urine pH 6.0 (5.0-7.0) Ur Specific [place] 1.009 (1.003-1.030) Urine Protein <15 mg/dl (Negative) mg/dL Urine Glucose (UA) Neg (Negative) mg/dL Urine Ketones Neg (Negative) mg/dL Urine Blood Sm (Negative) Urine Nitrite Pos (Negative) Urine Bilirubin Neg (Negative) Urine Urobilinogen < 2.0 (<2.0) mg/dL Ur Leukocyte Esterase Lg (Negative) Urine WBC (Auto) 15.0 H (0.0-6.0) /HPF Urine RBC (Auto) 15.0 (0.0-6.0) /HPF U Epithel Cells (Auto) 7.0 (0-13.0) /HPF Urine Bacteria (Auto) 4+ (Negative) /HPF Urine Mucus Few /HPF Urine Opiates Screen Presumptive negative Urine Methadone Screen Presumptive negative Ur Barbiturates Screen Presumptive negative Ur Phencyclidine Scrn Presumptive negative Ur Amphetamines Screen Presumptive negative U Benzodiazepines Scrn Presumptive negative [place] (0.0-1.2) mmol/L Urine Cocaine Screen Presumptive negative U Marijuana (THC) Screen Presumptive negative Drugs of Abuse Note Disclamer Plasma/Serum Alcohol (0-0.07) gm% - EKG Data -: EKG Interpreted by Me EKG shows normal: sinus rhythm, axis (9), QRS complexes (67), ST-T waves (flat lat t waves) Rate: normal (73) - EKG Data When compared to previous EKG there are: no significant change 04/06/17 15:38 Repeat EKG is unchanged compared to previous - Radiology Data Radiology results: report reviewed CT head: No acute findings CT cervical spine: Mild degenerative changes, no acute findings - Medical Decision Making Other differential diagnosis: Infection Patient will be admitted to the hospital for workup or frequent falls which she states is associated with sudden onset unsteady gait. Symptoms could be secondary to polypharmacy however, with frequent ER visits will admit to rule out other acute pathology and for possible MRI. Macrobid initiated for UTI - Differential Diagnosis encephalopathy, substance abuse, drug intoxication, ICH, fracture, dehydrat Critical Care Time: No Critical care attestation.: If time is entered above; I have spent that time in minutes in the direct care of this critically ill patient, excluding procedure time. ED Disposition Clinical Impression: Schizophrenia, UTI (urinary tract infection), Frequent falls, Bipolar disorder Disposition: DC-01 TO HOME OR SELFCARE Is pt being admited?: No Does the pt Need Aspirin: No Condition: Stable Prescriptions: Nitrofurantoin Monohyd/M-Cryst [Macrobid 100 mg Capsule] 100 mg PO BID #14 capsule Time of Disposition: 15:42 (Dr Baldwin/hosp)
--- NOTE | 2017-04-06 14:43 | Cat Scan Report ---
FINAL REPORT PROCEDURE: CT HEAD/BRAIN WO CON TECHNIQUE: Computerized tomography of the head was performed without contrast material. HISTORY: fall, ? LOC COMPARISON: None FINDINGS: Brain volume is age appropriate. There is no intra or extra-axial hemorrhage. There is no CT evident acute infarction. There no mass effect or hydrocephalus. The skull base and calvarium are intact. Visualized portions of the paranasal sinuses, mastoid air cells, and middle ears are clear. IMPRESSION: No CT evident intracranial abnormality.
[2017-04-06] MEDS ORDERED: TYLENOL PO PRN (18:12)
[2017-04-06] MEDS ORDERED: ZOFRAN IV PRN (18:12)
[2017-04-06] MEDS ORDERED: MILK OF MAGNESIA PO PRN (18:12)
[2017-04-06] MEDS ORDERED: DULCOLAX PR PRN (18:12)
[2017-04-06 20:29] LABS: Creatine Kinase MB 3.4 ng/mL (0.0-4.0)
[2017-04-06] MEDS: D5NS 1,000 ML IV SCH (23:43)
[2017-04-06] MEDS: PERCOCET 5/325 PO PRN (23:45)
[2017-04-07 01:39] LABS: Creatine Kinase MB 2.8 ng/mL (0.0-4.0)
--- NOTE | 2017-04-07 05:36 | Event Note ---
Date: 04/06/17 See dictated h/p in reports
[2017-04-07 06:46] LABS: Basophils % (Auto) 0.6 % (0.0-1.8); Eosinophils # (Auto) 0.2 K/mm3 (0.0-0.4); Hematocrit 37.2 % (30.3-42.9); Hemoglobin 12.3 gm/dl (10.1-14.3); Lymphocytes # (Auto) 2.8 K/mm3 (1.2-5.4); Mean Corpuscular HGB Conc 33 % (30-34); Mean Corpuscular Hemoglobin 30 pg (28-32); Mean Corpuscular Volume 89 fl (79-97); Monocytes # (Auto) 0.6 K/mm3 (0.0-0.8); Platelet Count 343 K/mm3 (140-440); Red Blood Count 4.18 M/mm3 (3.65-5.03); Red Cell Distribution Width 14.2 % (13.2-15.2)
[2017-04-07 06:59] LABS: Alanine Aminotransferase 11 units/L (7-56); Albumin 3.8 g/dL (3.9-5); BUN/Creatinine Ratio 9; Blood Urea Nitrogen 7 mg/dL (7-17); Hemolysis Index 7
[2017-04-07 07:04] LABS: Creatine Kinase MB 3.1 ng/mL (0.0-4.0)
--- NOTE | 2017-04-07 08:15 | History and Physical Report ---
CHIEF COMPLAINT: 1. Frequent falls. 2. Headache. HISTORY OF PRESENT ILLNESS: A 51-year-old female with a past medical history of bipolar disorder, schizophrenia, fibromyalgia, posttraumatic stress disorder, asthma, hypertension who comes in for frequent falls. The patient takes lithium for bipolar disorder and Lyrica for fibromyalgia, and also hydrocodone for pain. Denies any overdose on medication, presents with scratches to the right side of the face and dry blood on the right side of the mouth. The patient also says that she may have had a seizure, but the patient is a very poor historian. History is significant for frequent falls for the last 6 weeks. One episode of syncope. She states she feels unsteady while walking. The patient is on lithium and Lyrica. PAST MEDICAL HISTORY: As mentioned, hypertension, asthma, schizophrenia, bipolar disorder, posttraumatic stress disorder. PAST SURGICAL HISTORY: Hysterectomy and x 2. SOCIAL HISTORY: Smokes over a pack a day. No substance abuse. FAMILY HISTORY: Hypertension. REVIEW OF SYSTEMS: Significant for frequent falls and unsteady gait and syncope. Otherwise, review of systems is essentially negative. A 14-point review of systems is done. PHYSICAL EXAMINATION: GENERAL: Middle-aged female, looks older than her age. VITAL SIGNS: Blood pressure is 101/69, pulse is 61, temperature is 98, sats are 99%. HEENT: Unremarkable. Superficial abrasions are present on the right side of the cheek. Pupils are equal and reactive. NECK: Supple, no lymphadenopathy, no thyromegaly. LUNGS: Clear to auscultation and percussion. Good air entry. CARDIOVASCULAR: S1, S2 heard. No gallop, no murmur, no rub. Apical impulse in left fifth intercostal space and midclavicular line. ABDOMEN: Soft and benign. No hepatosplenomegaly. No guarding, no rigidity. Hernial orifices are normal. EXTREMITIES: Good pedal pulses. Power is 5/5 in all 4 extremities. SKIN: Normal except for abrasions on the right side of the face, which is superficial. LABORATORY DATA: Significant for wbc's in the urine 15. Drug screen was essentially negative. White count was 8100, H and H is 12.4 and 38.3, platelet count is 365,000. Electrolytes are normal. Potassium was slightly low at 3.5. A1c is 5.2, glucose is 103, calcium is 8.2. ASSESSMENT AND PLAN: 1. Syncope. Syncope workup. 2. Frequent falls. The patient may have lithium toxicity. [place] level ordered. The patient may have to be decreased on [place] and Lyrica. The patient also on narcotic medications. The patient may have to decrease it. I do not see any reason why she has frequent falls. We will also get physical therapy involved. 3. Fibromyalgia. Continue Lyrica at a lower dose. 4. Bipolar disorder. We will get a mental health evaluation. At this point, my impression is that [place] is the cause of her frequent falls. We will get the mental health involved. 5. Schizophrenia, as per mental health. 6. Deep venous thrombosis prophylaxis, Lovenox 40 mg subcutaneous daily. JOB# [id number] TK/TEVIN
[2017-04-07] MEDS: D5NS 1,000 ML IV SCH (08:21)
[2017-04-07] MEDS: LOVENOX SUB-Q SCH (09:24)
[2017-04-07] MEDS ORDERED: LEXISCAN IV ONE ×2 (09:57→10:13)
[2017-04-07] MEDS: LEVAQUIN 500MG/100ML 500 MG/100 ML BAG IV SCH (13:59)
--- NOTE | 2017-04-07 14:15 | Progress Note ---
Assessment and Plan Assessment and plan: Patient is a 51-year-old woman with history of fibromyalgia on gabapentin and Lyrica for 8 months, bipolar disorder, hypertension and major depression who presents with syncope and altered mental status. -Acute metabolic encephalitis due to UTI -Sepsis UTI, present on admission: Started on IV antibiotics, follow cultures -Syncope most likely due to autonomic dysfunction: Continue cardiac monitoring check echocardiogram -Bipolar disorder: Restart Abilify, lithium, Wellbutrin History Interval history: Patient was seen and examined. Follow-up on current diagnosis. Overnight uneventful. Patient denies any chest pain, shortness breath, nausea/vomiting or severe headaches. Imaging, nursing note, chart, labs and old chart reviewed. Discussed with patient. Hospitalist Physical - Physical exam Narrative exam: GEN: WDWN, NAD, AWAKE, ALERT, ORIENTATED x 3 HEENT: NCAT, EOMI, PERRL, OP Clear NECK: supple, no adenopathy, no thyromegaly, no JVD CVS/HEART: mild regular tachy, NORMAL S1S2, NO JVD, pulses present bilaterally CHEST/LUNGS: CTA B, Symmetrical chest expansion, good air entry bilaterally GI/Abdomen: soft, NTND, good bowel sounds, no guarding or rebound /Bladder: Positive suprapubic tenderness, no CVA or paraspinal tenderness EXT/Skin: no c/c/e, no obvious rash MSK: FROM x 4 Neuro: CN 2-12 grossly intact, no new focal deficits Psych: calm - Constitutional Vitals: Temp Pulse Resp BP Pulse Ox 98.0 F 102 H 18 109/75 98 04/07/17 05:08 04/07/17 10:26 04/07/17 05:08 04/07/17 10:26 04/07/17 05:08 Results - Labs CBC & Chem 7: 04/07/17 06:20 04/07/17 06:20 Labs: Laboratory Last Values WBC 7.6 K/mm3 (4.5-11.0) 04/07/17 06:20 RBC 4.18 M/mm3 (3.65-5.03) 04/07/17 06:20 Hgb 12.3 gm/dl (10.1-14.3) 04/07/17 06:20 Hct 37.2 % (30.3-42.9) 04/07/17 06:20 MCV 89 fl (79-97) 04/07/17 06:20 MCH 30 pg (28-32) 04/07/17 06:20 MCHC 33 % (30-34) 04/07/17 06:20 RDW 14.2 % (13.2-15.2) 04/07/17 06:20 Plt Count 343 K/mm3 (140-440) 04/07/17 06:20 Lymph % (Auto) 37.0 % (13.4-35.0) H 04/07/17 06:20 [place] % (Auto) 8.0 % (0.0-7.3) H 04/07/17 06:20 Eos % (Auto) 3.0 % (0.0-4.3) 04/07/17 06:20 Baso % (Auto) 0.6 % (0.0-1.8) 04/07/17 06:20 Lymph # 2.8 K/mm3 (1.2-5.4) 04/07/17 06:20 [place] # 0.6 K/mm3 (0.0-0.8) 04/07/17 06:20 Eos # 0.2 K/mm3 (0.0-0.4) 04/07/17 06:20 Baso # 0.0 K/mm3 (0.0-0.1) 04/07/17 06:20 Seg Neutrophils % 51.4 % (40.0-70.0) 04/07/17 06:20 Seg Neutrophils # 3.9 K/mm3 (1.8-7.7) 04/07/17 06:20 PT 14.0 Sec. (12.2-14.9) 04/06/17 09:12 INR 1.03 (0.87-1.13) 04/06/17 09:12 Sodium 145 mmol/L (137-145) 04/07/17 06:20 Potassium 3.9 mmol/L (3.6-5.0) 04/07/17 06:20 Chloride 108.9 mmol/L (98-107) H 04/07/17 06:20 Carbon Dioxide 22 mmol/L (22-30) 04/07/17 06:20 Anion Gap 18 mmol/L 04/07/17 06:20 BUN 7 mg/dL (7-17) 04/07/17 06:20 Creatinine 0.8 mg/dL (0.7-1.2) 04/07/17 06:20 Estimated GFR > 60 ml/min 04/07/17 06:20 BUN/Creatinine Ratio 9 % 04/07/17 06:20 Glucose 124 mg/dL (65-100) H 04/07/17 06:20 Hemoglobin A1c 5.2 % (4-6) 04/06/17 19:39 Calcium 8.0 mg/dL (8.4-10.2) L 04/07/17 06:20 Total Bilirubin 0.30 mg/dL (0.1-1.2) 04/07/17 06:20 AST 12 units/L (5-40) 04/07/17 06:20 ALT 11 units/L (7-56) 04/07/17 06:20 Alkaline Phosphatase 89 units/L (35-129) 04/07/17 06:20 Total Creatine Kinase 123 units/L (30-135) 04/07/17 06:20 CK-MB (CK-2) 3.1 ng/mL (0.0-4.0) 04/07/17 06:20 CK-MB (CK-2) Rel Index 2.5 (0-4) 04/07/17 06:20 Troponin T < 0.010 ng/mL (0.00-0.029) 04/07/17 06:20 Total Protein 6.5 g/dL (6.3-8.2) 04/07/17 06:20 Albumin 3.8 g/dL (3.9-5) L 04/07/17 06:20 Albumin/Globulin Ratio 1.4 % 04/07/17 06:20 Urine Color Yellow (Yellow) 04/06/17 13:06 Urine Turbidity Slightly-cloudy (Clear) 04/06/17 13:06 Urine pH 6.0 (5.0-7.0) 04/06/17 13:06 Ur Specific [place] 1.009 (1.003-1.030) 04/06/17 13:06 Urine Protein <15 mg/dl mg/dL (Negative) 04/06/17 13:06 Urine Glucose (UA) Neg mg/dL (Negative) 04/06/17 13:06 Urine Ketones Neg mg/dL (Negative) 04/06/17 13:06 Urine Blood Sm (Negative) 04/06/17 13:06 Urine Nitrite Pos (Negative) 04/06/17 13:06 Urine Bilirubin Neg (Negative) 04/06/17 13:06 Urine Urobilinogen < 2.0 mg/dL (<2.0) 04/06/17 13:06 Ur Leukocyte Esterase Lg (Negative) 04/06/17 13:06 Urine WBC (Auto) 15.0 /HPF (0.0-6.0) H 04/06/17 13:06 Urine RBC (Auto) 15.0 /HPF (0.0-6.0) 04/06/17 13:06 U Epithel Cells (Auto) 7.0 /HPF (0-13.0) 04/06/17 13:06 Urine Bacteria (Auto) 4+ /HPF (Negative) 04/06/17 13:06 Urine Mucus Few /HPF 04/06/17 13:06 Urine Opiates Screen Presumptive negative 04/06/17 13:06 Urine Methadone Screen Presumptive negative 04/06/17 13:06 Ur Barbiturates Screen Presumptive negative 04/06/17 13:06 Ur Phencyclidine Scrn Presumptive negative 04/06/17 13:06 Ur Amphetamines Screen Presumptive negative 04/06/17 13:06 U Benzodiazepines Scrn Presumptive negative 04/06/17 13:06 [place] 0.2 mmol/L (0.0-1.2) 04/07/17 10:04 Urine Cocaine Screen Presumptive negative 04/06/17 13:06 U Marijuana (THC) Screen Presumptive negative 04/06/17 13:06 Drugs of Abuse Note Disclamer 04/06/17 13:06 Plasma/Serum Alcohol < 0.01 gm% (0-0.07) 04/06/17 09:21
[2017-04-07] MEDS: PERCOCET 5/325 PO PRN (17:37)
[2017-04-07] MEDS: LYRICA PO SCH (21:51)
[2017-04-07] MEDS: ESKALITH PO SCH (21:51)
[2017-04-07] MEDS: MORPHINE IV PRN (21:52)
[2017-04-08] MEDS: SYNTHROID PO SCH ×2 (05:39)
[2017-04-08] MEDS: ESKALITH PO SCH ×2 (09:06→23:01)
[2017-04-08] MEDS: LEVAQUIN 500MG/100ML 500 MG/100 ML BAG IV SCH (09:06)
[2017-04-08] MEDS: LYRICA PO SCH ×2 (09:06→23:00)
[2017-04-08] MEDS: LOVENOX SUB-Q SCH (09:07)
[2017-04-08] MEDS ORDERED: NON-FORMULARY (Levothyroxine Sodium [Synthroid] 137 MCG) PO SCH (10:00)
--- NOTE | 2017-04-08 10:49 | Progress Note ---
Assessment and Plan Assessment and plan: Patient is a 51-year-old woman with history of fibromyalgia on gabapentin and Lyrica for 8 months, bipolar disorder, hypertension and major depression who presents with syncope and altered mental status. -Acute metabolic encephalitis due to UTI -Sepsis UTI, present on admission: Started on IV antibiotics, follow cultures -Syncope most likely due to autonomic dysfunction: Continue cardiac monitoring check echocardiogram -Bipolar disorder: Restart Abilify, lithium, Wellbutrin 04/07/2017 transthoracic echocardiogram read as left ventricular chamber size is normal, estimated EF is 45-50% side, abnormal left ventricular diastolic filling is observed, consistent with impaired relaxation, right ventricle cavity size and systolic function is normal, right atrial cavity size normal, mild mitral valve prolapse, mild to moderate MR, mild TR, RVSP calculated at 21 mmHg, mild TR, no pericardial effusion 04/08/2017: In culture growing out gram-negative rods await finalization, consult cardiology due to above History Interval history: Patient was seen and examined. Follow-up on current diagnosis. Overnight uneventful. Patient denies any chest pain, shortness breath, nausea/vomiting or severe headaches. Imaging, nursing note, chart, labs and old chart reviewed. Discussed with patient. Hospitalist Physical - Physical exam Narrative exam: GEN: WDWN, NAD, AWAKE, ALERT, ORIENTATED x 3 HEENT: NCAT, EOMI, PERRL, OP Clear NECK: supple, no adenopathy, no thyromegaly, no JVD CVS/HEART: mild regular tachy, NORMAL S1S2, NO JVD, pulses present bilaterally CHEST/LUNGS: CTA B, Symmetrical chest expansion, good air entry bilaterally GI/Abdomen: soft, NTND, good bowel sounds, no guarding or rebound /Bladder: Positive suprapubic tenderness, no CVA or paraspinal tenderness EXT/Skin: no c/c/e, no obvious rash MSK: FROM x 4 Neuro: CN 2-12 grossly intact, no new focal deficits Psych: calm - Constitutional Vitals: Temp Pulse Resp BP Pulse Ox 99.0 F 84 20 117/85 94 04/08/17 07:31 04/08/17 07:31 04/08/17 07:31 04/08/17 07:31 04/08/17 07:31 Results - Labs CBC & Chem 7: 04/07/17 06:20 04/07/17 06:20 Labs: Laboratory Last Values WBC 7.6 K/mm3 (4.5-11.0) 04/07/17 06:20 RBC 4.18 M/mm3 (3.65-5.03) 04/07/17 06:20 Hgb 12.3 gm/dl (10.1-14.3) 04/07/17 06:20 Hct 37.2 % (30.3-42.9) 04/07/17 06:20 MCV 89 fl (79-97) 04/07/17 06:20 MCH 30 pg (28-32) 04/07/17 06:20 MCHC 33 % (30-34) 04/07/17 06:20 RDW 14.2 % (13.2-15.2) 04/07/17 06:20 Plt Count 343 K/mm3 (140-440) 04/07/17 06:20 Lymph % (Auto) 37.0 % (13.4-35.0) H 04/07/17 06:20 [place] % (Auto) 8.0 % (0.0-7.3) H 04/07/17 06:20 Eos % (Auto) 3.0 % (0.0-4.3) 04/07/17 06:20 Baso % (Auto) 0.6 % (0.0-1.8) 04/07/17 06:20 Lymph # 2.8 K/mm3 (1.2-5.4) 04/07/17 06:20 [place] # 0.6 K/mm3 (0.0-0.8) 04/07/17 06:20 Eos # 0.2 K/mm3 (0.0-0.4) 04/07/17 06:20 Baso # 0.0 K/mm3 (0.0-0.1) 04/07/17 06:20 Seg Neutrophils % 51.4 % (40.0-70.0) 04/07/17 06:20 Seg Neutrophils # 3.9 K/mm3 (1.8-7.7) 04/07/17 06:20 PT 14.0 Sec. (12.2-14.9) 04/06/17 09:12 INR 1.03 (0.87-1.13) 04/06/17 09:12 Sodium 145 mmol/L (137-145) 04/07/17 06:20 Potassium 3.9 mmol/L (3.6-5.0) 04/07/17 06:20 Chloride 108.9 mmol/L (98-107) H 04/07/17 06:20 Carbon Dioxide 22 mmol/L (22-30) 04/07/17 06:20 Anion Gap 18 mmol/L 04/07/17 06:20 BUN 7 mg/dL (7-17) 04/07/17 06:20 Creatinine 0.8 mg/dL (0.7-1.2) 04/07/17 06:20 Estimated GFR > 60 ml/min 04/07/17 06:20 BUN/Creatinine Ratio 9 % 04/07/17 06:20 Glucose 124 mg/dL (65-100) H 04/07/17 06:20 Hemoglobin A1c 5.2 % (4-6) 04/06/17 19:39 Calcium 8.0 mg/dL (8.4-10.2) L 04/07/17 06:20 Total Bilirubin 0.30 mg/dL (0.1-1.2) 04/07/17 06:20 AST 12 units/L (5-40) 04/07/17 06:20 ALT 11 units/L (7-56) 04/07/17 06:20 Alkaline Phosphatase 89 units/L (35-129) 04/07/17 06:20 Total Creatine Kinase 123 units/L (30-135) 04/07/17 06:20 CK-MB (CK-2) 3.1 ng/mL (0.0-4.0) 04/07/17 06:20 CK-MB (CK-2) Rel Index 2.5 (0-4) 04/07/17 06:20 Troponin T < 0.010 ng/mL (0.00-0.029) 04/07/17 06:20 Total Protein 6.5 g/dL (6.3-8.2) 04/07/17 06:20 Albumin 3.8 g/dL (3.9-5) L 04/07/17 06:20 Albumin/Globulin Ratio 1.4 % 04/07/17 06:20 Urine Color Yellow (Yellow) 04/06/17 13:06 Urine Turbidity Slightly-cloudy (Clear) 04/06/17 13:06 Urine pH 6.0 (5.0-7.0) 04/06/17 13:06 Ur Specific [place] 1.009 (1.003-1.030) 04/06/17 13:06 Urine Protein <15 mg/dl mg/dL (Negative) 04/06/17 13:06 Urine Glucose (UA) Neg mg/dL (Negative) 04/06/17 13:06 Urine Ketones Neg mg/dL (Negative) 04/06/17 13:06 Urine Blood Sm (Negative) 04/06/17 13:06 Urine Nitrite Pos (Negative) 04/06/17 13:06 Urine Bilirubin Neg (Negative) 04/06/17 13:06 Urine Urobilinogen < 2.0 mg/dL (<2.0) 04/06/17 13:06 Ur Leukocyte Esterase Lg (Negative) 04/06/17 13:06 Urine WBC (Auto) 15.0 /HPF (0.0-6.0) H 04/06/17 13:06 Urine RBC (Auto) 15.0 /HPF (0.0-6.0) 04/06/17 13:06 U Epithel Cells (Auto) 7.0 /HPF (0-13.0) 04/06/17 13:06 Urine Bacteria (Auto) 4+ /HPF (Negative) 04/06/17 13:06 Urine Mucus Few /HPF 04/06/17 13:06 Urine Opiates Screen Presumptive negative 04/06/17 13:06 Urine Methadone Screen Presumptive negative 04/06/17 13:06 Ur Barbiturates Screen Presumptive negative 04/06/17 13:06 Ur Phencyclidine Scrn Presumptive negative 04/06/17 13:06 Ur Amphetamines Screen Presumptive negative 04/06/17 13:06 U Benzodiazepines Scrn Presumptive negative 04/06/17 13:06 [place] 0.2 mmol/L (0.0-1.2) 04/07/17 10:04 Urine Cocaine Screen Presumptive negative 04/06/17 13:06 U Marijuana (THC) Screen Presumptive negative 04/06/17 13:06 Drugs of Abuse Note Disclamer 04/06/17 13:06 Plasma/Serum Alcohol < 0.01 gm% (0-0.07) 04/06/17 09:21
[2017-04-08] MEDS: D5NS 1,000 ML IV SCH (11:19)
--- NOTE | 2017-04-08 12:05 | Discharge Summary ---
Providers - Providers Date of Admission: 04/06/17 18:12 Date of discharge: 04/08/17 Attending physician: KELLY KIMBROUGH 04/06/17 19:21 Consult to Mental Health [CONS] Routine Reason For Exam: bipolar disorder Place consult to:: [place] Notified:: Phone number called:: [phone] Was contact made?: No Time called:: 11:45 Comment:: no answer at [phone] 04/07/17 08:45 Physical Therapy Evaluation and Treat [CONS] Routine Comment: Reason For Exam: debility and frequent falls 04/08/17 10:48 Consult to Physician [CONS] Routine Consulting Provider: OTIS VOSS Reason For Exam: syncope and abn ECHO Hospitalization Condition: Stable Hospital course: Patient is a 51-year-old woman with history of fibromyalgia on gabapentin and Lyrica for 8 months, bipolar disorder, hypertension and major depression who presents with syncope and altered mental status. -Acute metabolic encephalitis due to UTI -Sepsis UTI, present on admission: Started on IV antibiotics, follow cultures -Syncope most likely due to autonomic dysfunction: Continue cardiac monitoring check echocardiogram -Bipolar disorder: Restart Abilify, lithium, Wellbutrin 04/07/2017 transthoracic echocardiogram read as left ventricular chamber size is normal, estimated EF is 45-50% side, abnormal left ventricular diastolic filling is observed, consistent with impaired relaxation, right ventricle cavity size and systolic function is normal, right atrial cavity size normal, mild mitral valve prolapse, mild to moderate MR, mild TR, RVSP calculated at 21 mmHg, mild TR, no pericardial effusion 04/08/2017: In culture growing out gram-negative rods await finalization, consult cardiology due to above Disposition: DC-01 TO HOME OR SELFCARE Time spent for discharge: 35 minutes Core Measure Documentation - Palliative Care Palliative Care/ Comfort Measures: Not Applicable - Core Measures Any of the following diagnoses?: none - VTE Discharge Requirements Deep Vein Thrombosis/Pulmonary Embolism Present on Admission: No Has pt received <5 days of overlap therapy or INR<2.0: No Anticoagulant overlap therapy prescribed at discharge: No Contraindication No Overlap Therapy order at DC: Not Indicated Exam - Physical Exam Narrative exam: GEN: WDWN, NAD, AWAKE, ALERT, ORIENTATED x 3 HEENT: NCAT, EOMI, PERRL, OP Clear NECK: supple, no adenopathy, no thyromegaly, no JVD CVS/HEART: mild regular tachy, NORMAL S1S2, NO JVD, pulses present bilaterally CHEST/LUNGS: CTA B, Symmetrical chest expansion, good air entry bilaterally GI/Abdomen: soft, NTND, good bowel sounds, no guarding or rebound /Bladder: Positive suprapubic tenderness, no CVA or paraspinal tenderness EXT/Skin: no c/c/e, no obvious rash MSK: FROM x 4 Neuro: CN 2-12 grossly intact, no new focal deficits Psych: calm - Constitutional Vitals: Temp Pulse Resp BP Pulse Ox 99.0 F 84 20 117/85 94 04/08/17 07:31 04/08/17 07:31 04/08/17 07:31 04/08/17 07:31 04/08/17 07:31 Plan Activity: other (no strenous activity until cleared by cardiology) Diet: low salt Follow up with: ALBIN GIBSON [Other] - 7 Days OTIS VOSS MD [Staff Physician] - 7 Days Prescriptions: Ciprofloxacin HCl [Ciprofloxacin TAB] 500 mg PO BID #5 day Levothyroxine [Synthroid] 112 mcg PO DAILY@0600 #30 tablet Levothyroxine [Synthroid] 25 mcg PO DAILY@0600 #30 tablet [place] Carbonate [Eskalith] 150 mg PO BID #60 capsule oxyCODONE /ACETAMINOPHEN [Percocet 5/325 mg] 1 tab PO Q6H PRN #30 tablet PRN Reason: Pain, Moderate (4-6) Pregabalin [Lyrica] 75 mg PO BID #60 capsule
--- NOTE | 2017-04-08 12:38 | Event Note ---
Date: 04/08/17 Detailed cardiology consultation dictated. A: #1: Syncope #2: HTN #3: Bipolar disorder #4: Tobacco use P: S/p lexiscan MPI stress test yesterday which was negative for ischemia. Echo reviewed with no acute findings. Head CT with NAF. Obtain orthostatics. If orthostatics WNL, pt may discharge home from cardiology standpoint. Recommend follow up in our office with Kellie Malone NP, within 1-2 weeks of hospital discharge ([phone]). Rg DEAN NP / DR. VOSS
[2017-04-08] MEDS: MORPHINE IV PRN (20:10)
--- NOTE | 2017-04-09 03:04 | Treadmill Report ---
NUCLEAR PERFUSION SCAN REFERRING PHYSICIAN: Dr. Saldaña. PROTOCOL: The patient was brought to the stress lab in a postabsorptive state, given 10 mCi of technetium 99m at rest. The patient underwent rest imaging. The patient underwent Lexiscan stress test. At peak stress, the patient was given 26 mCi of technetium 99m. Shortly thereafter, the patient underwent stress imaging. Raw imaging reveals mild GI artifact. No significant motion artifact. SPECT imaging examined carefully in the horizontal long axis, vertical long axis, short axis views. There is normal homogenous uptake at rest up in all reported segments. No evidence of significant fixed or reversible perfusion defects suggestive of prior infarction or ischemia. Gated wall motion reveals normal systolic thickening, calculated ejection fraction of 65%, no TID. CONCLUSIONS: 1. Normal myocardial perfusion scan without evidence of active ischemia or prior infarction. 2. Normal left ventricular systolic performance without evidence of transient ischemic dilatation or stress-induced segmental wall motion abnormalities. JOB# [id number] ROSA/TEVIN
[2017-04-09] MEDS: SYNTHROID PO SCH ×2 (06:11)
[2017-04-09] MEDS: LEVAQUIN 500MG/100ML 500 MG/100 ML BAG IV SCH (10:00)
[2017-04-09] MEDS: LOVENOX SUB-Q SCH (10:00)
[2017-04-09] MEDS: LYRICA PO SCH ×2 (11:02→21:55)
[2017-04-09] MEDS: ESKALITH PO SCH ×2 (11:02→21:55)
--- NOTE | 2017-04-09 11:20 | Event Note ---
Date: 04/09/17 Patient was seen and examined. Issues. Patient was not discharged yesterday because transportation issues. It appears patient is homeless and unable to go back to [facility] so transportation would not take her. [place] ambulated [place] without any difficulties or assistance. Patient without any symptoms at this time. She still stable to go to be discharge. Please see discharge summary from yesterday, time of discharge 34 minutes
--- NOTE | 2017-04-09 11:24 | Progress Note ---
Assessment and Plan Assessment and plan: Patient is a 51-year-old woman with history of fibromyalgia on gabapentin and Lyrica for 8 months, bipolar disorder, hypertension and major depression who presents with syncope and altered mental status. -Acute metabolic encephalitis due to E. coli UTI, pansensitive. -Sepsis UTI, present on admission: Started on IV antibiotics, follow cultures -Syncope most likely due to autonomic dysfunction: Continue cardiac monitoring check echocardiogram -Bipolar disorder: Restart Abilify, lithium, Wellbutrin 04/07/2017 transthoracic echocardiogram read as left ventricular chamber size is normal, estimated EF is 45-50% side, abnormal left ventricular diastolic filling is observed, consistent with impaired relaxation, right ventricle cavity size and systolic function is normal, right atrial cavity size normal, mild mitral valve prolapse, mild to moderate MR, mild TR, RVSP calculated at 21 mmHg, mild TR, no pericardial effusion 04/08/2017: In culture growing out gram-negative rods await finalization, consult cardiology due to above 04/09/2017: Patient was seen and examined. Issues. Patient was not discharged yesterday because transportation issues. It appears patient is homeless and unable to go back to [facility] so transportation would not take her. We ambulated [place] without any difficulties or assistance. Patient without any symptoms at this time. She still stable to be discharge. Please see discharge summary from yesterday, time of discharge 34 minutes. Discussed with case management Evelia, it appears if patient is voluntary and living in [facility] then they can not go by EMS so we will try to find private transportation to [facility]. History Interval history: Patient was seen and examined. Follow-up on current diagnosis. Overnight uneventful. Patient denies any chest pain, shortness breath, nausea/vomiting or severe headaches. Imaging, nursing note, chart, labs and old chart reviewed. Discussed with patient. Hospitalist Physical - Physical exam Narrative exam: GEN: WDWN, NAD, AWAKE, ALERT, ORIENTATED x 3 HEENT: NCAT, EOMI, PERRL, OP Clear NECK: supple, no adenopathy, no thyromegaly, no JVD CVS/HEART: mild regular tachy, NORMAL S1S2, NO JVD, pulses present bilaterally CHEST/LUNGS: CTA B, Symmetrical chest expansion, good air entry bilaterally GI/Abdomen: soft, NTND, good bowel sounds, no guarding or rebound /Bladder: Positive suprapubic tenderness, no CVA or paraspinal tenderness EXT/Skin: no c/c/e, no obvious rash MSK: FROM x 4 Neuro: CN 2-12 grossly intact, no new focal deficits Psych: calm - Constitutional Vitals: Temp Pulse Resp BP Pulse Ox 98.8 F 75 22 130/86 98 04/09/17 07:54 04/09/17 07:54 04/09/17 07:54 04/09/17 07:54 04/09/17 07:54 Results - Labs CBC & Chem 7: 04/07/17 06:20 04/07/17 06:20 Labs: Laboratory Last Values WBC 7.6 K/mm3 (4.5-11.0) 04/07/17 06:20 RBC 4.18 M/mm3 (3.65-5.03) 04/07/17 06:20 Hgb 12.3 gm/dl (10.1-14.3) 04/07/17 06:20 Hct 37.2 % (30.3-42.9) 04/07/17 06:20 MCV 89 fl (79-97) 04/07/17 06:20 MCH 30 pg (28-32) 04/07/17 06:20 MCHC 33 % (30-34) 04/07/17 06:20 RDW 14.2 % (13.2-15.2) 04/07/17 06:20 Plt Count 343 K/mm3 (140-440) 04/07/17 06:20 Lymph % (Auto) 37.0 % (13.4-35.0) H 04/07/17 06:20 [place] % (Auto) 8.0 % (0.0-7.3) H 04/07/17 06:20 Eos % (Auto) 3.0 % (0.0-4.3) 04/07/17 06:20 Baso % (Auto) 0.6 % (0.0-1.8) 04/07/17 06:20 Lymph # 2.8 K/mm3 (1.2-5.4) 04/07/17 06:20 [place] # 0.6 K/mm3 (0.0-0.8) 04/07/17 06:20 Eos # 0.2 K/mm3 (0.0-0.4) 04/07/17 06:20 Baso # 0.0 K/mm3 (0.0-0.1) 04/07/17 06:20 Seg Neutrophils % 51.4 % (40.0-70.0) 04/07/17 06:20 Seg Neutrophils # 3.9 K/mm3 (1.8-7.7) 04/07/17 06:20 PT 14.0 Sec. (12.2-14.9) 04/06/17 09:12 INR 1.03 (0.87-1.13) 04/06/17 09:12 Sodium 145 mmol/L (137-145) 04/07/17 06:20 Potassium 3.9 mmol/L (3.6-5.0) 04/07/17 06:20 Chloride 108.9 mmol/L (98-107) H 04/07/17 06:20 Carbon Dioxide 22 mmol/L (22-30) 04/07/17 06:20 Anion Gap 18 mmol/L 04/07/17 06:20 BUN 7 mg/dL (7-17) 04/07/17 06:20 Creatinine 0.8 mg/dL (0.7-1.2) 04/07/17 06:20 Estimated GFR > 60 ml/min 04/07/17 06:20 BUN/Creatinine Ratio 9 % 04/07/17 06:20 Glucose 124 mg/dL (65-100) H 04/07/17 06:20 Hemoglobin A1c 5.2 % (4-6) 04/06/17 19:39 Calcium 8.0 mg/dL (8.4-10.2) L 04/07/17 06:20 Total Bilirubin 0.30 mg/dL (0.1-1.2) 04/07/17 06:20 AST 12 units/L (5-40) 04/07/17 06:20 ALT 11 units/L (7-56) 04/07/17 06:20 Alkaline Phosphatase 89 units/L (35-129) 04/07/17 06:20 Total Creatine Kinase 123 units/L (30-135) 04/07/17 06:20 CK-MB (CK-2) 3.1 ng/mL (0.0-4.0) 04/07/17 06:20 CK-MB (CK-2) Rel Index 2.5 (0-4) 04/07/17 06:20 Troponin T < 0.010 ng/mL (0.00-0.029) 04/07/17 06:20 Total Protein 6.5 g/dL (6.3-8.2) 04/07/17 06:20 Albumin 3.8 g/dL (3.9-5) L 04/07/17 06:20 Albumin/Globulin Ratio 1.4 % 04/07/17 06:20 Urine Color Yellow (Yellow) 04/06/17 13:06 Urine Turbidity Slightly-cloudy (Clear) 04/06/17 13:06 Urine pH 6.0 (5.0-7.0) 04/06/17 13:06 Ur Specific [place] 1.009 (1.003-1.030) 04/06/17 13:06 Urine Protein <15 mg/dl mg/dL (Negative) 04/06/17 13:06 Urine Glucose (UA) Neg mg/dL (Negative) 04/06/17 13:06 Urine Ketones Neg mg/dL (Negative) 04/06/17 13:06 Urine Blood Sm (Negative) 04/06/17 13:06 Urine Nitrite Pos (Negative) 04/06/17 13:06 Urine Bilirubin Neg (Negative) 04/06/17 13:06 Urine Urobilinogen < 2.0 mg/dL (<2.0) 04/06/17 13:06 Ur Leukocyte Esterase Lg (Negative) 04/06/17 13:06 Urine WBC (Auto) 15.0 /HPF (0.0-6.0) H 04/06/17 13:06 Urine RBC (Auto) 15.0 /HPF (0.0-6.0) 04/06/17 13:06 U Epithel Cells (Auto) 7.0 /HPF (0-13.0) 04/06/17 13:06 Urine Bacteria (Auto) 4+ /HPF (Negative) 04/06/17 13:06 Urine Mucus Few /HPF 04/06/17 13:06 Urine Opiates Screen Presumptive negative 04/06/17 13:06 Urine Methadone Screen Presumptive negative 04/06/17 13:06 Ur Barbiturates Screen Presumptive negative 04/06/17 13:06 Ur Phencyclidine Scrn Presumptive negative 04/06/17 13:06 Ur Amphetamines Screen Presumptive negative 04/06/17 13:06 U Benzodiazepines Scrn Presumptive negative 04/06/17 13:06 [place] 0.2 mmol/L (0.0-1.2) 04/07/17 10:04 Urine Cocaine Screen Presumptive negative 04/06/17 13:06 U Marijuana (THC) Screen Presumptive negative 04/06/17 13:06 Drugs of Abuse Note Disclamer 04/06/17 13:06 Plasma/Serum Alcohol < 0.01 gm% (0-0.07) 04/06/17 09:21
--- NOTE | 2017-04-09 11:37 | Consultation ---
REQUESTING PHYSICIAN: Dr. Alireza Adrian. CONSULTING PHYSICIAN: Dr. Rg Saldaña. HISTORY OF PRESENT ILLNESS: This is a 51-year-old female who was admitted to the hospital with history of fall ?syncope for further evaluation and management. Consultation is requested because of the history of syncope to rule out any cardiac etiology. History is not obtained from the patient. The patient is a poor historian. When I went to see the patient, she was very drowsy, but was answering the questions appropriately. The patient states that she has had multiple falls over the past 6 months. On further questioning, the patient states that she gets dizzy and then loses balance and falls. When questioned whether she lost consciousness, initially she says no and then she says yes. I am not sure whether these are syncopal episodes or just a fall. The patient denies any chest pain, pressure, tightness, heaviness, etc. No orthopnea or PND. No edema of feet. The patient denied any palpitations, claudications, dizziness and ?syncope, and multiple falls as described. The patient has a past medical history of hypertension, bipolar disorder, posttraumatic stress disorder, a questionable history of asthma, history of schizophrenia too. She is on multiple medications for the same. The patient denied taking overdose. The patient states that she has been taking her medications regularly over the past 2 months or so. The patient was on lithium and Lyrica at that time. Because of the history of fibromyalgia, she was taking Lyrica. PAST MEDICAL HISTORY: Includes hypertension, history of asthma, schizophrenia, bipolar disorder, posttraumatic stress disorder. PAST SURGICAL HISTORY: Includes hysterectomy and x 2. SOCIAL HISTORY: The patient gives a history of smoking 1 pack of cigarettes per day. Nonalcoholic. No history of drug abuse. FAMILY HISTORY: Positive for hypertension. REVIEW OF SYSTEMS: CARDIOVASCULAR: As described above. RESPIRATORY: History of asthma. GASTROINTESTINAL: Unremarkable. GENITOURINARY: Unremarkable. NEUROLOGICAL: History of multiple falls and dizziness. No history of any seizures. MEDICATIONS: At the time of admission, the patient was on lithium and Lyrica. PHYSICAL EXAMINATION: GENERAL: This is a 51-year-old white female, well built and moderately nourished, in no acute distress at the present time. The patient is conscious, alert, oriented, afebrile. SKIN: Warm and dry. HEENT: Pupils are reactive. NECK: Supple. Both carotids well palpable. No definite bruit. No JVD. CHEST: Lungs are clear. HEART: S1-S2 heard well. Grade 1/6 systolic murmur noted at the left sternal border. No diastolic murmur or gallop. ABDOMEN: Soft, nontender, no organomegaly. Bowel sounds are heard normally. EXTREMITIES: No edema, no calf tenderness. Good pedal pulses. NEUROLOGIC: Grossly within normal limits. RECTAL AND PELVIC: Not done at this time. VITAL SIGNS: The patient's blood pressure was 117/85 and heart rate was 84 per minute and regular. LABORATORY DATA: Showed a hemoglobin of 12.3, hematocrit of 37.2. CMP was within normal limits. A1c was 5.2 at admission. The patient had a CT scan of the head done which was unremarkable. The patient also had an echocardiogram done, which showed normal sized left ventricle with mild left ventricular systolic dysfunction with ejection fraction in the range of about 45%. Diastolic dysfunction of the left ventricle noted. No significant valvular abnormalities. The patient also had a stress thallium test done which was negative for any significant reversible ischemia. Ejection fraction was normal. The patient also had carotid studies done. IMPRESSION: 1. History of multiple falls ?syncope, ?cause. 2. History of bipolar disorder. 3. History of schizophrenia. 4. History of mild fibromyalgia. 5. Hypertension. This is a 51-year-old white female with history of hypertension, bipolar disorder, and schizophrenia who was admitted to the hospital with history of multiple falls and questionable history of syncope for further evaluation and management. The patient's examination is unremarkable. Bowel sounds were stable. Workup was negative so far. So far, we have not documented any cardiac arrhythmias since her stress test was negative. I had a hard time eliciting a good history from the patient to see whether she actually had syncopal episode or multiple falls. For now, the cardiac workup is negative, so I do not have any problem with the patient being released from the hospital. We will be glad to follow her up as an outpatient and maybe consider further workup to rule out any orthostatic hypotension, cardiac arrhythmias contributing to her symptoms. It could be autonomic disturbance too. I have explained this to the patient. The patient expressed understanding of the planning as per you. Thank you very much for this consultation. We will follow the patient along with you. JOB# [id number] KHANH/TEVIN
[2017-04-09] MEDS: PERCOCET 5/325 PO PRN (21:56)
[2017-04-10] MEDS: SYNTHROID PO SCH ×2 (07:05)
[2017-04-10] MEDS: PERCOCET 5/325 PO PRN (07:33)
[2017-04-10 08:50] VITALS: BP 112/82
--- NOTE | 2017-04-10 14:52 | Event Note ---
Date: 04/10/17 see discharge summary
--- NOTE | 2017-04-13 15:07 | Vascular Lab Report ---
CAROTID DUPLEX STUDY: RIGHT PSVEDV CCA PROX:7830 CCA DIST:7533 ICA PROX:6827 ICA MID:9334 ICA DIST:7929 ECA: 81 VERT: 42 23 LEFT PSVEDV CCA PROX:8833 CCA DIST:8033 ICA PROX:6623 ICA MID:8839 ICA DIST:8846 ECA: 58 VERT: 45 20 REASON FOR EXAM: Syncope. COMMENTS ON THE RIGHT: Doppler frequency analysis is consistent with 16 to 49 percent diameter reduction of the internal carotid artery. Minimal amount of plaque is seen. The common carotid artery is patent. The external carotid artery is patent. The vertebral artery has antegrade flow. COMMENTS ON THE LEFT: Doppler frequency analysis is consistent with 16 to 49 percent diameter reduction of the internal carotid artery. Minimal amount of plaque is seen. The common carotid artery is patent. The external carotid artery is patent. The vertebral artery has antegrade flow. IMPRESSION: Less than 50% diameter reduction in the internal carotid arteries bilaterally.
== END 2017-04-10 10:00 | disposition home or self-care (01) | DRG 871 ==
LOC: ED 08:26 → 3A 18:12 → UNDODISIN 04-08 22:21
PROVIDERS: ADMIT Internal Medicine; ATTEND Internal Medicine
DX: A41.9 Sepsis, unspecified organism (principal); G93.41 Metabolic encephalopathy; N39.0 Urinary tract infection, site not specified; M79.7 Fibromyalgia; F31.9 Bipolar disorder, unspecified; G90.9 Disorder of the autonomic nervous system, unspecified; I08.1 Rheumatic disorders of both mitral and tricuspid valves; F20.9 Schizophrenia, unspecified; F43.10 Post-traumatic stress disorder, unspecified; J45.909 Unspecified asthma, uncomplicated; I10 Essential (primary) hypertension; F17.210 Nicotine dependence, cigarettes, uncomplicated; Z82.49 Family history of ischemic heart disease and other diseases of the circulatory system; Z88.0 Allergy status to penicillin; Z90.710 Acquired absence of both cervix and uterus
CPT/HCPCS: 36415; 70450; 72125; 78452; 80048; 80053; 80178; 80307; 80320; 81001; 82550; 82553; 83036; 84484; 85025; 85610; 87076; 87086; 87186; 93005; 93010; 93017; 93306; 93880; 96360; 99406; A9502; G0480; J1650; J1956; J2270; J2785; J7030; J7042